=== PATIENT | male | born 1990 | race Two or more races ===

== ENCOUNTER 2025-01-21 07:00 | Emergency (ER) | payer BC ==
[2025-01-21 07:08] VITALS: BP 123/75; PULSE 62; RESP 18; TEMP 97.9; BMI 27.1
[2025-01-21 08:25] LABS: ALBUMIN 4.3 g/dl (3.4-5.0); BLOOD UREA NITROGEN 15.2 mg/dL (7-18); CALCIUM 9.5 mg/dL (8.5-10.1); MAGNESIUM 2.1 mg/dL (1.8-2.4)
[2025-01-21 08:30] LABS: BILIRUBIN,TOTAL 0.7 mg/dL (0.2-1)
[2025-01-21 08:32] LABS: TOT PROT 7.6 g/dl (6.4-8.2)
[2025-01-21 09:21] LABS: BASOPHILS # 0.04 x10^3/uL (0.01-0.08); EOSINOPHIL % 2.7 % (0.8-7.0); EOSINOPHILS # 0.11 x10^3/uL (0.04-0.54); MCHC 32.6 g/dl (32.3-36.5); MEAN CELL VOLUME 88.1 fl (79.0-92.2); MEAN PLT VOLUME 10.5 fl (9.4-12.4); MONOCYTE # 0.32 x10^3/uL (0.30-0.82); MONOCYTE % 7.8 % (5.3-12.2); PLATELET COUNT 269 x10^3/uL (163-337); RDW 12.3 % (12.0-15.6)
== END 2025-01-21 10:07 | disposition home or self-care (01) ==
LOC: JER 07:00
DX: R11.2 Nausea with vomiting, unspecified (principal); R07.9 Chest pain, unspecified; R06.02 Shortness of breath; R00.2 Palpitations; R61 Generalized hyperhidrosis
CPT/HCPCS: 36415; 71046-TC-FY; 80053; 83690; 83735; 84443; 84484; 85025; 93005; 93010; 99285-25